=== PATIENT | male | born 1985 | race Caucasian/White ===

== ENCOUNTER 2018-03-12 20:55 | Emergency (ER) | payer OTHER ==
[~2018-03-12] VITALS: Ht 188 cm; Wt 122.5 kg
[2018-03-12 21:41] LABS: BASOPHIL (%) 0.7 % (0-1); BASOPHIL COUNT 0.1 K/uL (0-0.1); EOSINOPHIL (%) 2.9 % (0-5); EOSINOPHIL COUNT 0.2 K/uL (0-0.3); HEMATOCRIT 40.4 % (38.0-50.0); IMMATURE GRANULOCYTE (%) 0.3 % (0.0-0.7); LYMPHOCYTE (%) 33.7 % (15-42); LYMPHOCYTE COUNT 2.5 K/uL (1.0-2.8); MCH 29.8 PG (29.0-34.0); MCHC 34.7 G/DL (30.0-36.0); MONOCYTE (%) 7.5 % (3-12); MONOCYTE COUNT 0.6 K/uL (0-0.8); NEUTROPHIL (%) 54.9 % (45-76); PLATELET COUNT 232 K/uL (156-360); RBC DIS.WIDTH-CV 11.6 % (11.8-14.6); RBC DIS.WIDTH-SD 36.4 % (39-53); WHITE BLOOD COUNT 7.3 K/uL (4.1-10.2)
[2018-03-12 21:50] LABS: CHLORIDE 103 mEq/L (99-109); POTASSIUM 3.9 mEq/L (3.7-5.4); SODIUM 139 mEq/L (136-147)
[2018-03-12 21:52] LABS: GLUCOSE 95 mg/dL (70-99)
[2018-03-12 21:55] LABS: GFR ESTIMATE (CALCULATED) > 59 mL/min/ (58.99-99999)
[2018-03-12 21:56] LABS: UREA NITROGEN (BUN) 15 mg/dL (9-23)
[2018-03-12 21:58] LABS: CREATINE KINASE 140 IU/L (1-294)
[2018-03-12 22:03] LABS: TROP-I INTERPRETATION NEGATIVE; TROPONIN-I < 0.01 ng/mL (0.0-0.30)
[2018-03-13 00:29] LABS: TROP-I INTERPRETATION NEGATIVE; TROPONIN-I < 0.01 ng/mL (0.0-0.30)
[2018-03-13 01:33] VITALS: BP 130/87
== END 2018-03-13 01:33 | disposition home or self-care (01) ==
LOC: EME 20:55
PROVIDERS: Emergency Medicine
DX: T75.4XXA Electrocution, initial encounter (principal); R20.0 Anesthesia of skin; R20.2 Paresthesia of skin; M79.601 Pain in right arm; Y99.0 Civilian activity done for income or pay; I10 Essential (primary) hypertension; G43.909 Migraine, unspecified, not intractable, without status migrainosus; Z87.891 Personal history of nicotine dependence
CPT/HCPCS: 80048; 82550; 84484; 85025; 93005; 99281; 99284; J7030